=== PATIENT | male | born 1945 ===

== ENCOUNTER → 2016-09-05 | Outpatient (CLI) | payer BC ==
[~2016-09-05] MED LIST: AMLO10TA82 PO; ATEN-155 PO; CEPH-331 PO; HYDR-3754 PO; LISI1TAB6 PO; SULF-228 PO
--- NOTE | 2016-09-05 14:53 | Diagnostic Imaging Report ---
PROCEDURE: CT abdomen without contrast. TECHNIQUE: Multiple contiguous axial images were obtained through the abdomen without the use of intravenous contrast. INDICATION: Left upper abdominal wall pain. I have no priors for comparison. FINDINGS: No rectus sheath collection or hematoma. No fascial defect or ventral abdominal wall hernia. No periumbilical hernia. There are bilateral renal cortical and parapelvic cysts with no paranephric edema. There is a right hepatic lobe cyst. Liver and gallbladder otherwise normal. No biliary dilatation. The spleen is negative. There is no adrenal mass. The pancreas and peripancreatic fat normal. There are no findings of bowel obstruction. There is some scattered colonic diverticula with lumbar spondylosis and multilevel decompressive laminectomy. The lung bases nonacute. IMPRESSION: No abdominal wall hernia or fluid collection. Scattered colonic diverticula. Renal cortical and parapelvic cysts with probable hepatic cyst. No obstruction, free air, fluid collection or ascites. Dictated by: Dictated on workstation # [id number]
== END ==
LOC: LAB 14:15
PROVIDERS: ATTEND Family Medicine
DX: R10.12 Left upper quadrant pain (principal)
CPT/HCPCS: 74150